=== PATIENT | female | born 1955 | race Caucasian/White ===

== ENCOUNTER 2018-06-27 08:27 | Emergency (ER) | payer OTHER ==
[~2018-06-27] VITALS: Ht 154.9 cm; Wt 56.7 kg
[2018-06-27 08:36] VITALS: BP 145/80
[2018-06-27 08:57] LABS: ABSOLUTE BASOPHIL COUNT 0 /CUMM (0.0-0.2); ABSOLUTE EOSINOPHIL COUNT 0.1 /CUMM (0.0-0.7); ABSOLUTE GRANULOCYTE CT 3.1 /CUMM (1.4-6.5); ABSOLUTE LYMPH COUNT 1.1 /CUMM (1.2-3.4); ABSOLUTE MONOCYTE COUNT 0.6 /CUMM (0.10-0.60); BASOPHIL % 0.6 % (0.0-2.0); GRANULOCYTE % 62.9 % (42.2-75.2); HEMATOCRIT 39.5 % (37-47); MEAN CORPUSCULAR HGB 33.5 PG (27.0-31.0); MEAN CORPUSCULAR HGB CONC 35.1 G/DL (33.0-37.0); MEAN CORPUSCULAR VOLUME 95.3 FL (81.0-99.0); MEAN PLATELET VOLUME 7.6 FL (7.4-10.4); PLATELET COUNT 227 /CUMM (130-400); RBC DISTRIBUTION WIDTH 12.8 % (11.5-14.5); RED BLOOD CELL CT 4.15 /CUMM (4.20-5.40); WHITE BLOOD CELL COUNT 4.9 /CUMM (4.8-10.8)
[2018-06-27 09:06] LABS: PT 13.2 SEC (9.4-12.5); PTT 29 SEC (25-37)
--- NOTE | 2018-06-27 10:07 | ED GENERAL ADULT ---
History of Present Illness General Chief Complaint: General Adult Stated Complaint: FEVER; ABD PAIN AND "MY GUMS ARE BLEEDING" Source: patient, friend Exam Limitations: no limitations Vital Signs & Intake/Output Vital Signs & Intake/Output Vital Signs Date Time Temp Pulse Resp B/P B/P Pulse O2 O2 Flow FiO2 Mean Ox Delivery Rate 06/27 0836 98.2 90 18 145/80 99 Room Air Allergies Coded Allergies: No Known Allergies (06/27/18) Triage Note: 62F W FEVERS SINCE SATURDAY AND NOW BLEEDING GUMS AND TENDERNESS TO THAT AREA. SAW WALK IN THE OTHER DAY WHO IS UNSURE IF SHE HAS A BACTERIAL INFECTION OR A VIRUS. DENIES URI OR UTI SYMPTOMS. DENIES N/V/D. FEELS SUBJECTIVE DEHYDRATION AND ABD CRAMPING. AFEBRILE IN TRIAGE, TOOK TYLENOL 650MG THIS AM FOR HEADACHE. Triage Nurses Notes Reviewed? yes HPI: 62 year old female with no PMH presenting with one week history of myalgias, fever (101.8), drenching night sweats, bleeding gums, mouth ulcerations. Patient states she was in her normal health one week ago. She takes no medications. She reports sudden onset of the above sx. She has taken tylenol for pain and fever with minimal relief. She was seen at a [facility] yesterday and given PCN. Sx did not improve and she decided to come in to the ED for further evaluation. She denies n/v/d, constipation, abdominal pain, chest pain, SOB, cough, sinus congestion, recent travel, known tick bites. She does reports this summer she was bitten many times by flies and mosquitos. 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 Sexual history: patient denies any form of sexual behavior for several years, but has been sexually active in the past. (Anny Clark MD) Past History Travel History Traveled to [place] past 21 day No Medical History Any Pertinent Medical History? none Surgical History Surgical History: none Psychosocial History Where do you live Home Who do you live with Other (see notes) (friend) Services at Home None What is your primary language Belgian Tobacco Use: Never used ETOH Use: denies use Illicit Drug Use: denies illicit drug use Family History Hx Contributory? No (Anny Clark MD) Review of Systems Review of Systems Constitutional: Reports: chills, diaphoresis, fever, malaise. Denies: weakness, unexplained weight loss. EENTM: Reports: mouth pain (bleeding gums). Respiratory: Denies: cough, short of breath, sputum production, stridor, wheezing. Cardiovascular: Denies: chest pain, edema, palpitations, peripheral edema, syncope. GI: Denies: abdominal pain, bloating, constipation, diarrhea, nausea, changes in stool, vomiting. Genitourinary: Reports: no symptoms. Musculoskeletal: Reports: joint pain, muscle pain. Skin: Reports: no symptoms. Neurological/Psychological: Reports: no symptoms. (Anny Clark MD) Physical Exam Physical Exam General Appearance: well developed/nourished, no apparent distress, alert, awake , appears to feel fatigued Head: atraumatic, normal appearance Eyes: Bilateral: normal appearance, PERRL, EOMI. Ears, Nose, Throat: moist mucus membranes, ulcerations/vesicles (multiple sublingual ulcers), oral thrush to tongue, gums with slight erythema; no acitve bleeding or hyperplasia Neck: normal inspection, supple Respiratory: normal breath sounds, chest non-tender, no respiratory distress Cardiovascular: regular rate/rhythm Peripheral Pulses: 2+ radial (R), 2+ radial (L) Gastrointestinal: normal bowel sounds, soft, non-tender Back: normal inspection Extremities: normal inspection, normal capillary refill, normal range of motion, no edema Neurologic/Psych: no motor/sensory deficits, awake, alert, oriented x 3 Skin: intact, normal color, warm/dry Core Measures ACS in differential dx? No CVA/TIA Diagnosis: No Sepsis Present: No Sepsis Focused Exam Completed? No (Anny Clark MD) Progress Differential Diagnoses I considered the following diagnoses in my evaluation of the patient: [tick borne illness: sx align with anaplasmosis and patient with dog that has anaplasmosis currently vs HIV (oral thrush and multiple mouth ulcers in patient with no use of steriods or inhalers or known autoimmune disorders] Plan of Care: Orders Procedure Date/time Status Add-on Test (ER Only) 06/27 1010 Active HIV (Reflex to HIVCQ) 06/27 1010 Complete URINALYSIS 06/27 0832 Complete PARTIAL THROMBOPLASTIN TIME 06/27 0832 Complete PROTHROMBIN TIME 09/21 0832 Complete LIPASE 06/27 832 Complete COMPREHENSIVE METABOLIC PANEL 06/27 832 Complete CBC WITHOUT DIFFERENTIAL 06/27 832 Complete Laboratory Tests 06/27/18 1057: HIV 1&2 Ab Western Blot NONREACTIVE 06/27/18 0952: Urine Color YEL, Urine Clarity CLEAR, Urine pH 6.5, Ur Specific [place] <= 1.005 , Urine Protein NEG, Urine Ketones NEG, Urine Nitrite NEG, Urine Bilirubin NEG, Urine Urobilinogen 0.2, Ur Leukocyte Esterase NEG, Ur Microscopic EXAM NOT REQUIRED, Urine Hemoglobin NEG, Urine Glucose NEG 06/27/18 0847: Anion Gap 13, Estimated GFR > 60, BUN/Creatinine Ratio 12.9, Glucose 104 H, Calcium 9.8, Total Bilirubin 0.4, AST 24, ALT 31, Alkaline Phosphatase 45, Total Protein 7.1, Albumin 4.5, Globulin 2.6, Albumin/Globulin Ratio 1.7, Lipase 202, PT 13.2 H, INR 1.21 H, APTT 29, CBC w Diff NO MAN DIFF REQ, RBC 4.15 L, MCV 95.3, MCH 33.5 H, MCHC 35.1, RDW 12.8, MPV 7.6, Gran % 62.9, Lymphocytes % 21.4 , Monocytes % 13.1 H, Eosinophils % 2.0, Basophils % 0.6, Absolute Granulocytes 3.1, Absolute Lymphocytes 1.1 L, Absolute Monocytes 0.6, Absolute Eosinophils 0.1, Absolute Basophils 0, A. phagocytophilum DNA Pending, Babesia microti DNA PCR Pending, Lyme Disease DNA (PCR) Pending, Borrelia miyamotoi (PCR) Pending, E.chaffeensis DNA (PCR) Pending Initial ED EKG: none Comments: 62-year-old female with no past medical history presenting with one-week history of myalgias, bleeding gums, fevers, night sweats, and mouth sores. Patient's laboratory workup in the ED shows no signs of dehydration, electrolyte abnormalities, acute infectious process, or anemia. Patient is currently using nystatin swish and spit for oral thrush. She has been advised to discontinue penicillin at this time that she received from the walk-in clinic. Will run a tick panel with suspicion for anaplasmosis given her constellation of symptoms and a dog being treated for anaplasmosis. Will also obtain HIV testing as the patient presents with oral thrush and no known immunocompromising disease state. She has been advised to follow-up with her primary care for results and further treatment. She will continue to take Tylenol for myalgias and fever. (Anny Clark MD) Departure Departure Time of Disposition: 1020 Disposition: HOME OR SELF CARE Condition: Stable Clinical Impression Primary Impression: Myalgia Secondary Impressions: Fever and chills, Oral thrush Referrals: Alison Castillo DO (PCP/Family) Additional Instructions: Follow-up with your primary care for results of tick panel and HIV testing. Take tylenol for fever and myalgias. Avoid NSAIDS such as Ibuprofen, Aleve, Motrin as this may make your bleeding gums worse. Stay well hydrated. Return for any worsening symptoms or concerns Continue Nystatin swish and spit for Oral thrush. Discontinue Penicillin that you received from the Walk-In Clinic. Departure Forms: Customer Survey General Discharge Information (Anny Clark MD) PA/PLANT BREEDER SCIENTIST Co-Sign Statement Statement: ED Attending supervision documentation- I saw and evaluated the patient. I have also reviewed all the pertinent lab results and diagnostic results. I agree with the findings and the plan of care as documented in the PA's/PLANT BREEDER SCIENTIST's documentation. x I have reviewed the ED Record and agree with the PA's/PLANT BREEDER SCIENTIST's documentation. [] Additions or exceptions (if any) to the PAs/PLANT BREEDER SCIENTIST's note and plan are summarized below: [] (Herb LEZAMA,Yadiel) Critical Care Note Critical Care Note Critical Care Time: non-applicable (Anny Clark MD)
[2018-06-28] MEDS ORDERED: ZOFRAN4 M2 PO (17:12)
== END 2018-06-27 11:15 ==
LOC: ERH 08:27
PROVIDERS: Physician Assistant Medical
DX: M79.1 Myalgia (principal); R50.9 Fever, unspecified; B37.0 Candidal stomatitis
CPT/HCPCS: 87798; 87801; 81003; 87389